=== PATIENT | male | born 1955 | race Two or more races ===

== ENCOUNTER 2017-02-06 12:42 | Inpatient (IN) | payer OTHER ==
[~2017-02-06] VITALS: Ht 180.3 cm; Wt 96.8 kg
--- NOTE | ~2017-02-06 | ECHO ---
Transthoracic Echocardiography Report (TTE) Demographics Patient Name ERROL JON Date of Study 02/07/2017 Patient Number [id number] Visit Number [id number] Date of 1955 Room Number G6223 Gender Male Number Age 61 year(s) Referring Beckie Mooney Certified Cytotechnologist Marco A Estrada RDCS, Physician RVT Liberty Wong MD Physician Interpreting Jacey Villarreal Java Tech Physician Supervising Ordering Liberty Wong MD, MD/MLP Physician Nurse Stress Construction Engineer Conclusions Contractility Score Summary Normal Left Ventricular contractility was noted. Summary Technically difficult exam due to lung interference. Normal LV/RV size and systolic function. The estimated left ventricular ejection fraction is 55-60%. The left atrium is moderately dilated by LA volume index measurement. The right atrium is mildly dilated. Moderate mitral regurgitation by color Doppler. The aortic valve is mildly sclerotic. Procedure Type of Study TTE procedure:2D Echocardiogram. Procedure Date Date: 02/07/2017 Start: 10:42 AM Study Location: Inpatient Portable Technical Quality: Limited visualization due to lung interference. Indications:CVA. Appropriate Use Criteria: 9 Patient Status: Routine Rhythm: Atrial fibrillation HR: 84 bpm BP: 192/91 mmHg Allergies - Other:(Prednisone). M-Mode/2D Measurements LV Diastolic Dimension: 5.17 cm LV Systolic Dimension: 3.85 cm LV Septum Diastolic: 0.81 cm LV PW Diastolic: 0.95 cm AO Root Dimension: 3.7 cm Cardiac Output: 4.59 l/min AV Cusp Separation: 2.2 cm RV Diastolic Dimension: 2.55 cm LA volume: 84 ml LVOT: 2 cm RV Base: 3.47 cm LVOT VTI: 17.4 cm RV Mid: 3.26 cm LV Stroke volume: 54.64 ml TAPSE: 3.78 cm TDI-S': 17.2 cm/s Doppler Measurements AV Peak Velocity: 1.48 m/s MV Peak E-Wave: 1.14 m/s AV Peak Gradient: 8.76 mmHg AV Mean Gradient: 5 mmHg MV P1/2t: 63 msec LVOT Peak Velocity: 0.84 m/s TR Velocity:1.45 m/s PV Peak Velocity: 0.98 m/s TR Gradient:8.41 mmHg PV Peak Gradient: 3.83 mmHg Estimated RAP:8 mmHg Estimated PASP: 16.41 mmHg Estimated RVSP: 16 mmHg E' Septal Velocity: 0.11 m/s E' Lateral Velocity: 0.13 m/s Findings Left Ventricle The left ventricle is normal in size . Diastolic function indeterminate due to patient's arrhythmia. Pt was in atrial fibrillation during the study. Right Ventricle Normal right ventricle structure and function. Left Atrium The left atrium is moderately dilated by LA volume index measurement. Right Atrium The right atrium is mildly dilated. No subcostal images, unable to comment on IVC. Mitral Valve Moderate mitral regurgitation by color Doppler. Aortic Valve The aortic valve is mildly sclerotic. Tricuspid Valve Trivial tricuspid regurgitation by color Doppler. Pulmonic Valve Normal pulmonic valve structure and function. Pericardial Effusion No evidence of pericardial effusion. Miscellaneous Visualized portions of the aortic root and ascending aorta appear normal in size. Suboptimal subcostal window to evaluate the IVC and interatrial septum. Pleural Effusion No evidence of pleural effusion. Contractility Score LV regional wall motion:(0-Non visualized 1-Normal 2-Hypokinesis 3-Akinesis 4-Dyskinesis 5-Aneurysm) Signature dtt: JORDEN CASTILLO dtd: 02/07/17 1042 Physician Self Edit
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
--- NOTE | ~2017-02-06 | DS ---
PATIENT'S NAME: ERROL JON [facility] AGE: 61 Y [address] ROOM: [place] [address] LOC[facility]: [facility] ADMIT DATE: 02/06/2017 Discharge Summary DISCHARGE DATE: 02/11/2017 FAMILY PHYSICIAN: Vinicio Butts MD ATTENDING PHYSICIAN: Eric Squires PRINCIPAL DIAGNOSES: 1. Acute right posterior cerebral artery stroke. 2. New onset atrial fibrillation. 3. Type 2 diabetes. 4. Essential hypertension. 5. Vision loss, left eye. 6. Paraplegic waist down. HOSPITAL COURSE: Please review the admission H and P for a detailed history on initial presentation. In short, the patient was admitted and was found to have an acute right posterior cerebral artery stroke and was outside tPA window at presentation. The patient is known to be paraplegic and his significant neurologic finding following the stroke is partial vision loss in the left eye. The patient overall has done well therapy alexander and he is to continue to get therapy and is now being transferred to [facility] in [place]. Of note, the patient was also noted to be in new onset atrial fibrillation, which is new for the patient during hospitalization and this perhaps explains the embolic nature of the stroke. The patient was seen and evaluated by Cardiology and Neurology during his hospital stay and had been started on sotalol and had stayed in sinus rhythm in the last 72 hours. As far as anticoagulation and noting the large size of the stroke, anticoagulation is to be started with Coumadin on 02/15/2017 with the goals of reaching therapeutic INR within 3 to 5 days following initiation date. The patient otherwise today is in good spirits and is being discharged in satisfactory condition. PHYSICAL EXAMINATION: GENERAL: The patient is awake, alert, and oriented x3, in no acute distress. HEART: S1, S2. Regular rate and rhythm. CHEST: Clear to auscultation bilaterally. ABDOMEN: Soft, nontender, and nondistended. NEUROLOGIC: Left hemianopsia. DISPOSITION: [facility]. I have spoken to Dr. Butts about the patient's status and followup. MEDICATIONS: Per DEC. PATIENT'S NAME: ERROL JON [facility] AGE: 61 Y [address] ROOM: [place] [address] LOCATION: [facility] ADMIT DATE: 02/06/2017 Discharge Summary DISCHARGE DATE: 02/11/2017 FAMILY PHYSICIAN: Vinicio Butts MD ATTENDING PHYSICIAN: Eric Squires Greater than 30 minutes were spent in discharge planning and facilitating. CECILYOT MD JENA MCKEON/ryanl /[id number] d: 02/12/17 0146 t: 03/01/17 1200, DISCHARGE SUMMARY
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
[2017-02-06 13:31] LABS: HEMATOCRIT 31.2 % (37.0-53.0); HEMOGLOBIN 10.8 g/dL (11.0-16.0); MCH 29.8 pg (27.0-34.0); MCHC 34.6 gm/dL (32.0-36.5); MCV 86.2 fl (83.0-98.0); MPV 10.1 fl (9.4-12.4); RDW-CV 13.9 % (11.9-14.6); WBC 11.5 K/uL (4.0-11.0)
[2017-02-06 13:32] LABS: RBC 3.62 M/uL (3.50-5.50)
[2017-02-06 13:45] LABS: INR - (THERAPEUTIC) 0.96 (0.92-1.07); PROTIME 10.1 SECONDS (9.8-11.4)
[2017-02-06 13:52] LABS: ALBUMIN 2.3 gm/dL (3.5-5.0); ALK PHOS 94 IU/L (33-138); ALT 18 IU/L (12-78); ANION GAP 8.4 (10.0-19.0); AST 18 IU/L (10-40); BLOOD UREA NITROGEN 37 mg/dL (6-24); CALCIUM 7.7 mg/dL (8.5-10.5); CHLORIDE 113 mMol/L (96-110); CO2 25 mMol/L (22-32); CREATININE 1.4 mg/dL (0.6-1.3); ESTIMATED GFR (MDRD EQUATION) 52; POTASSIUM 3.4 mMol/L (3.7-5.1); SODIUM 143 mMol/L (135-145); TOTAL BILIRUBIN 0.4 mg/dL (0.0-1.5); TOTAL PROTEIN 5.5 g/dL (6.0-8.4)
[2017-02-06] MEDS ORDERED: DULCOLAX5 MG PO (17:46)
[2017-02-06] MEDS ORDERED: LANTUS (IN100 UNIT/M SUB-Q (17:47)
[2017-02-06] MEDS ORDERED: MACROBID100 MG PO (17:47)
[2017-02-07 01:26] LABS: BILIRUBIN URINE NEGATIVE (NEGATIVE); BLOOD URINE 50 /UL (NEGATIVE); COLOR URINE YELLOW (YELLOW); GLUCOSE URINE 100 mg/dL (NEGATIVE); KETONE URINE NEGATIVE (NEGATIVE); LEUKOCYTES URINE NEGATIVE /UL (NEGATIVE); NITRITE URINE NEGATIVE (NEGATIVE); PROTEIN URINE 500 mg/dL (NEGATIVE); TURBIDITY URINE 1+ (CLEAR); UROBILINOGEN URINE NORMAL (NORMAL)
[2017-02-07 01:43] LABS: WBC URINE NEGATIVE #/HPF (NEGATIVE)
[2017-02-07 01:44] LABS: AMORPHOUS URINE 1+ (NEGATIVE); BACTERIA URINE MANY (NEGATIVE); EPITHELIAL URINE NEGATIVE #/HPF (NEGATIVE); HYALINE CAST URINE 0-2 #/LPF (NEGATIVE); RENAL EPITH URINE NEGATIVE #/HPF (NEGATIVE)
[2017-02-07 05:16] LABS: ANION GAP 10.7 (10.0-19.0); CALCIUM 7.6 mg/dL (8.5-10.5); CREATININE 1.4 mg/dL (0.6-1.3); POTASSIUM 3.7 mMol/L (3.7-5.1)
[2017-02-08 05:12] LABS: CALCIUM 7.5 mg/dL (8.5-10.5); CREATININE 1.3 mg/dL (0.6-1.3)
[2017-02-08 05:15] LABS: ANION GAP 12.4 (10.0-19.0); MAGNESIUM 1.7 mg/dL (1.8-2.6); POTASSIUM 3.4 mMol/L (3.7-5.1)
[2017-02-09 05:06] LABS: CREATININE 1.4 mg/dL (0.6-1.3); POTASSIUM 3.3 mMol/L (3.7-5.1)
[2017-02-09 05:09] LABS: ANION GAP 14.3 (10.0-19.0); CALCIUM 7.2 mg/dL (8.5-10.5)
[2017-02-10 04:14] LABS: ANION GAP 11.2 (10.0-19.0); CALCIUM 7.5 mg/dL (8.5-10.5); CREATININE 1.3 mg/dL (0.6-1.3); MAGNESIUM 1.8 mg/dL (1.8-2.6); POTASSIUM 3.2 mMol/L (3.7-5.1)
[2017-02-11 04:50] LABS: ANION GAP 9.2 (10.0-19.0); CALCIUM 7.6 mg/dL (8.5-10.5); CREATININE 1.5 mg/dL (0.6-1.3); POTASSIUM 3.2 mMol/L (3.7-5.1)
[2017-05-21] MEDS ORDERED: COUMADIN ** IA3 MG PO (13:35)
[2017-05-21] MEDS ORDERED: PRINIVIL (ZESTRI5 MG PO (13:37)
[2017-05-21] MEDS ORDERED: AMIODARONE HCL100 MG (13:37)
[2017-05-21] MEDS ORDERED: TOPROL XL 5050 MG PO (13:38)
== END 2017-02-11 12:09 | disposition swing bed (61) | DRG 65 ==
LOC: GMED 12:42 → GNTU 16:16
PROVIDERS: Internal Medicine; ADMIT Internal Medicine
DX: I63.431 Cerebral infarction due to embolism of right posterior cerebral artery (principal); N39.0 Urinary tract infection, site not specified; G82.20 Paraplegia, unspecified; G95.20 Unspecified cord compression; H53.462 Homonymous bilateral field defects, left side; I11.0 Hypertensive heart disease with heart failure; I50.32 Chronic diastolic (congestive) heart failure; E83.42 Hypomagnesemia; I48.0 Paroxysmal atrial fibrillation; R20.0 Anesthesia of skin; E11.9 Type 2 diabetes mellitus without complications; N31.2 Flaccid neuropathic bladder, not elsewhere classified; E87.6 Hypokalemia; S24.154D Other incomplete lesion at T11-T12 level of thoracic spinal cord, subsequent encounter; H54.7 Unspecified visual loss; V89.2XXD Person injured in unspecified motor-vehicle accident, traffic, subsequent encounter; I25.10 Atherosclerotic heart disease of native coronary artery without angina pectoris; Z79.4 Long term (current) use of insulin
CPT/HCPCS: A9577; J0696; J1170; J1650; J1940; J2405; J3010; J3475; J3480; J7030; J7050

== ENCOUNTER 2017-02-19 11:00 | Inpatient (IN) | payer OTHER ==
[~2017-02-19] VITALS: Ht 154.9 cm; Wt 85.0 kg
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
--- NOTE | ~2017-02-19 | OR ---
PATIENT'S NAME: ERROL BULLARD [facility] AGE: 61 Y [address] ROOM: [place] [address] LOCATION: GPCU ADMIT DATE: 02/19/2017 OR/Procedure Report DISCHARGE DATE: 03/05/2017 FAMILY PHYSICIAN: Vinicio Butts MD ATTENDING PHYSICIAN: Alireza Lenz SURGEON: Duran Rich DO PATHOLOGY SECRETARY: DATE OF PROCEDURE: 02/26/2017 PREOPERATIVE DIAGNOSIS: Tachybrady syndrome with sinus bradycardia. POSTOPERATIVE DIAGNOSIS: Tachybrady syndrome with sinus bradycardia. PROCEDURE: Insertion of dual-chamber with permanent pacemaker via the left subclavian vein. BRIEF HISTORY: Mr. Bullard is a 61-year-old white male, who has been brought to the operative suite today for placement of his device. The anterior chest wall was sterilely prepped and draped. The left infraclavicular space was infiltrated with 1% lidocaine after appropriate IV sedation was achieved and the patient was placed into a Trendelenburg position. The subclavian vein was accessed and a guidewire was fed without resistance under fluoroscopic guidance into the right atrium. An incision was created and pocket was formed. Electrocautery was used for hemostasis. Guidewires were brought through the incision via sheath and dilator assembly, we placed our leads. We began with our right ventricular lead. It is a [employer] Ingevity lead, model 7742, serial #[id number]. It is placed in the right ventricular apex sensing R-waves of 13.4 with a measured threshold of 0.6 V and pacing impedance of 788 ohms and a current of 0.8 milliamps. The atrial leads were then placed in a similar fashion. It is a [employer] Ingevity lead, model 7741, serial #[id number], it is placed in the right atrial appendage sensing P-waves of 3.6 mV with a voltage threshold of 0.5 V and a pacing impedance of 594 ohms. Each lead now connected to the generator, which is a [employer]ent[employer], model L111, serial #[id number]. Leads and generator were now placed in the pocket. Appropriate sensing pacing was noted. The incision was closed in a layered fashion with 2-0 Vicryl and 4-0 Monocryl and a pressure dressing was applied. The patient tolerated the procedure well and was transferred to the recovery room in stable condition. DURAN RICH DO MCB/sarabjit PATIENT'S NAME: ERROL BULLARD [facility] AGE: 61 Y [address] ROOM: [place] [address] LOCATION: [facility] ADMIT DATE: 02/19/2017 OR/Procedure Report DISCHARGE DATE: 03/05/2017 FAMILY PHYSICIAN: Vinicio Butts MD ATTENDING PHYSICIAN: Alireza Lenz /[id number] d: 03/11/172054 t: 03/12/17 0841, OPERATIVE SUMMARY
--- NOTE | ~2017-02-19 | OR ---
PATIENT'S NAME: ERROL BULLARD [facility] AGE: 61 Y [address] ROOM: [address] [address] LOCATION: [facility] ADMIT DATE: 02/19/2017 OR/Procedure Report DISCHARGE DATE: FAMILY PHYSICIAN: Vinicio Butts MD ATTENDING PHYSICIAN: Yoanna CHATTERJEE SURGEON: Duran Ellis DO OBSTETRICS GYN PHYSICIAN: DATE OF PROCEDURE: 02/22/2017 PREOPERATIVE DIAGNOSIS: Bilateral pleural effusions. POSTOPERATIVE DIAGNOSIS: Bilateral pleural effusions. PROCEDURE: Insertion of bilateral 14-Sami chest tubes. REFERRING: David Branch MD. BRIEF HISTORY: Mr. Bullard is a 61-year-old white male with the above-noted diagnosis. Informed consent has been obtained. We began on the right, the area had been identified laterally with the ultrasound, 1% lidocaine was used to infiltrate the area after appropriate sterilizing and prepping area, 1% lidocaine infiltrated a skin well on the deeper tissues. Stab incision was made and the pleural space was accessed, guidewire fed without resistance, and the chest tube was placed without difficulty. An an aliquot of fluid was obtained for specimen and then the chest tube was connected to suction. Approximately 1200 mL of pleural fluid was evacuated from the right pleural space. The left pleural space tube was placed in exactly the same fashion, approximately 1 L fluid was obtained on this side. Chest x-ray is pending. DO NEETU MASSEY/ryanl /[id number] d: 02/22/17 1421 t: 02/23/17 1057, OPERATIVE SUMMARY
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
[~2017-02-19 11:00] MED LIST: DULCOLAX5 MG PO; LANTUS (IN100 UNIT/M SUB-Q; MACROBID100 MG PO
[2017-02-19] MEDS ORDERED: ASPIRIN (CHILDR81 MG PO (14:57)
[2017-02-19] MEDS ORDERED: BETAPACE (GENER80 MG PO (14:58)
[2017-02-19] MEDS ORDERED: ALDACTONE25 MG PO (14:58)
[2017-02-19] MEDS ORDERED: TYLENOL EXTRA500 MG PO (14:59)
[2017-02-19] MEDS ORDERED: NORVASC5 MG PO (15:00)
[2017-02-19 15:01] LABS: BASOPHIL # 0.1 K/uL (0.0-0.2); BASOPHIL % 0.6 %; EOSINOPHIL # 0.5 K/uL (0.0-0.5); EOSINOPHIL % 4.9 %; HEMATOCRIT 32.1 % (37.0-53.0); HEMOGLOBIN 10.8 g/dL (11.0-16.0); IMMATURE GRANULOCYTE % 0.2 %; LYMPHOCYTE # 3.5 K/uL (0.8-4.0); MCH 29.6 pg (27.0-34.0); MCHC 33.6 gm/dL (32.0-36.5); MCV 87.9 fl (83.0-98.0); MONOCYTE # 0.8 K/uL (0.0-1.0); MONOCYTE % 7.6 %; MPV 9.3 fl (9.4-12.4); NEUTROPHIL # (ANC) 5.9 K/uL (1.4-9.0); NEUTROPHIL % 54.7 %; NRBC % 0 /100WBC (0-0.00); PLATELET COUNT 236 K/uL (150-450); RBC 3.65 M/uL (3.50-5.50); RDW-CV 13.7 % (11.9-14.6); WBC 10.8 K/uL (4.0-11.0)
[2017-02-19] MEDS ORDERED: POTASSIUM CHLO20 ME1 PO (15:03)
[2017-02-19] MEDS ORDERED: COUMADIN ** IA5 MG PO (15:04)
[2017-02-19] MEDS ORDERED: LIPITOR80 MG PO (15:06)
[2017-02-19 15:19] LABS: ALBUMIN 2.1 gm/dL (3.5-5.0); ANION GAP 12.2 (10.0-19.0); CALCIUM 7.7 mg/dL (8.5-10.5); CREATININE 2.4 mg/dL (0.6-1.3); POTASSIUM 4.2 mMol/L (3.7-5.1); TOTAL BILIRUBIN 0.4 mg/dL (0.0-1.5); TOTAL PROTEIN 5.8 g/dL (6.0-8.4)
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
[2017-02-19 17:17] LABS: INR - (THERAPEUTIC) 2.39 (0.92-1.07); PROTIME 25.3 SECONDS (9.8-11.4)
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
[2017-02-19 18:28] LABS: BILIRUBIN URINE NEGATIVE (NEGATIVE); BLOOD URINE 50 /UL (NEGATIVE); COLOR URINE YELLOW (YELLOW); GLUCOSE URINE NEGATIVE (NEGATIVE); KETONE URINE NEGATIVE (NEGATIVE); LEUKOCYTES URINE NEGATIVE /UL (NEGATIVE); NITRITE URINE NEGATIVE (NEGATIVE); PROTEIN URINE 500 mg/dL (NEGATIVE); SPEC GRAVITY URINE 1.015 (1.003-1.035); TURBIDITY URINE 1+ (CLEAR); UROBILINOGEN URINE NORMAL (NORMAL)
[2017-02-19 19:01] LABS: BACTERIA URINE MODERATE (NEGATIVE)
[2017-02-19 19:04] LABS: MUCUS URINE 1+ (NEGATIVE)
[2017-02-19 19:05] LABS: AMORPHOUS URINE 3+ (NEGATIVE)
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
[2017-02-20 06:05] LABS: INR - (THERAPEUTIC) 2.86 (0.92-1.07); PROTIME 30.3 SECONDS (9.8-11.4)
[2017-02-20 06:22] LABS: ALBUMIN 2.2 gm/dL (3.5-5.0); ANION GAP 12.7 (10.0-19.0); CALCIUM 7.9 mg/dL (8.5-10.5); CREATININE 2.5 mg/dL (0.6-1.3); PHOSPHORUS 4.6 mg/dL (2.5-4.9); POTASSIUM 3.7 mMol/L (3.7-5.1)
[2017-02-20 14:06] LABS: BILIRUBIN URINE NEGATIVE (NEGATIVE); BLOOD URINE 50 /UL (NEGATIVE); COLOR URINE YELLOW (YELLOW); GLUCOSE URINE NEGATIVE (NEGATIVE); KETONE URINE NEGATIVE (NEGATIVE); LEUKOCYTES URINE NEGATIVE /UL (NEGATIVE); NITRITE URINE NEGATIVE (NEGATIVE); PROTEIN URINE 100 mg/dL (NEGATIVE); SPEC GRAVITY URINE 1.015 (1.003-1.035); TURBIDITY URINE 1+ (CLEAR); UROBILINOGEN URINE NORMAL (NORMAL)
[2017-02-20 14:23] LABS: BACTERIA URINE MODERATE (NEGATIVE); EPITHELIAL URINE 0-2 #/HPF (NEGATIVE); MUCUS URINE 1+ (NEGATIVE); RENAL EPITH URINE 0-2 #/HPF (NEGATIVE)
[2017-02-20 14:24] LABS: WBC CAST URINE 0-2 #/LPF (NEGATIVE)
[2017-02-20 14:25] LABS: WBC CLUMPS URINE FEW (NEGATIVE)
--- NOTE | 2017-02-20 15:20 | NUR ---
Significant Event: Pt denies pain. Always cold and wrapped in blankets at all times. Up in his w/c with 2 assist, pt able to slideboard transfer. Zhang catheter draining yellow urine. UA sent, started on 24 hour UA at 1345. Cardiac enzymes done x1. Renal conulted. Ultrasound of chest done, possibility of thoracenthesis by Dr. Ellis. Hold Coumadin. O2 sat 99% on 2 liters, Dc'd O2 and will monitor. Bp at 1400 was 196/90, pulse 50, MD notified, prn Hydralizine ordered but approx. 20 min later bp was 149/74 pulse 49 so did not give. On a fluid restriction. Pt is a paraplegic. Tele on, no calls, is bradycardiac throughout shift. Follow up:
--- NOTE | 2017-02-21 02:08 | NUR ---
Significant Event: Patient alert and orientated, refuses any pain medication though it is obvious he does have pain. Zhang to DD. Repositioned self during waking hours, but asks for help throughout the night. 2-3+ edema to bilateral legs. 24 hour urine complete at 1345 today. Vitals have been stable. Restarted 02 at 2 liters because his sats dropped to 81 during the night. Lungs clear. Follow up: Continue to monitor.
[2017-02-21 05:41] LABS: BASOPHIL # 0.1 K/uL (0.0-0.2); BASOPHIL % 0.5 %; EOSINOPHIL # 0.4 K/uL (0.0-0.5); EOSINOPHIL % 3.2 %; HEMATOCRIT 31.5 % (37.0-53.0); HEMOGLOBIN 10.8 g/dL (11.0-16.0); IMMATURE GRANULOCYTE % 0.3 %; LYMPHOCYTE % 25.1 %; MCH 29.8 pg (27.0-34.0); MCHC 34.3 gm/dL (32.0-36.5); MCV 86.8 fl (83.0-98.0); MONOCYTE # 0.8 K/uL (0.0-1.0); MONOCYTE % 6.7 %; NEUTROPHIL # (ANC) 7.7 K/uL (1.4-9.0); NEUTROPHIL % 64.2 %; NRBC % 0 /100WBC (0-0.00); PLATELET COUNT 232 K/uL (150-450); RBC 3.63 M/uL (3.50-5.50); RDW-CV 13.2 % (11.9-14.6)
[2017-02-21 05:50] LABS: INR - (THERAPEUTIC) 2.67 (0.92-1.07); PROTIME 28.3 SECONDS (9.8-11.4)
[2017-02-21 05:58] LABS: ALBUMIN 2.2 gm/dL (3.5-5.0); ANION GAP 11.8 (10.0-19.0); CREATININE 2.6 mg/dL (0.6-1.3); PHOSPHORUS 4.2 mg/dL (2.5-4.9); POTASSIUM 3.8 mMol/L (3.7-5.1)
--- NOTE | 2017-02-21 15:09 | NUR ---
Significant Event: Pt c/o generalized chronic pain but refuses pain meds. Up with slideboard and 2 assist. Zhang draining yellow urine. 24hr UA stopped at 1345 and sent to lab. Continues on fluid restriction. Has been on room air today. Vit K IV given x1 to help bring INR down for possible future procedure. Will recheck in am. PT/OT consult. Family at bedside. Follow up:
[2017-02-21 18:07] LABS: INR - (THERAPEUTIC) 1.51 (0.92-1.07); PROTIME 15.9 SECONDS (9.8-11.4)
[2017-02-22 04:20] LABS: BASOPHIL # 0.1 K/uL (0.0-0.2); BASOPHIL % 0.5 %; EOSINOPHIL # 0.4 K/uL (0.0-0.5); EOSINOPHIL % 3.3 %; HEMATOCRIT 30.3 % (37.0-53.0); HEMOGLOBIN 10.5 g/dL (11.0-16.0); IMMATURE GRANULOCYTE % 0.3 %; LYMPHOCYTE # 3.8 K/uL (0.8-4.0); LYMPHOCYTE % 30.6 %; MCHC 34.7 gm/dL (32.0-36.5); MCV 86.6 fl (83.0-98.0); MONOCYTE # 0.8 K/uL (0.0-1.0); MONOCYTE % 6.2 %; MPV 9.9 fl (9.4-12.4); NEUTROPHIL # (ANC) 7.2 K/uL (1.4-9.0); NEUTROPHIL % 59.1 %; NRBC % 0 /100WBC (0-0.00); PLATELET COUNT 228 K/uL (150-450); RDW-CV 13.2 % (11.9-14.6); WBC 12.3 K/uL (4.0-11.0)
--- NOTE | 2017-02-22 04:38 | NUR ---
Significant Event: Patient started on heparin therapy last night and will have bilateral chest tube placement today at 0900. Consents not signed, no risks benefits discussed. Stop heparin at 0800. Had a incontinent stool. Hypertensive. Tele with no calls. Zhang to DD, bilateral groin are reddened and small open area noted on scrotum. Repositions self at times, but needs to be awoken to be repositioned at nighttime. Mormon could also do renal bx.
[2017-02-22 04:42] LABS: ALBUMIN 2.2 gm/dL (3.5-5.0); ANION GAP 11.5 (10.0-19.0); CALCIUM 7.8 mg/dL (8.5-10.5); CREATININE 2.7 mg/dL (0.6-1.3); MAGNESIUM 1.9 mg/dL (1.8-2.6); PHOSPHORUS 3.7 mg/dL (2.5-4.9); POTASSIUM 3.5 mMol/L (3.7-5.1)
[2017-02-22 04:47] LABS: PROTIME 12.2 SECONDS (9.8-11.4)
[2017-02-22 04:53] LABS: INR - (THERAPEUTIC) 1.16 (0.92-1.07)
--- NOTE | 2017-02-22 16:00 | NUR ---
SPOKE TO PATIENT'S SPOUSE AT THE BEDSIDE. INTRODUCED CM AND OUR ROLE. PATIENT LIVES IN OWN HOME WITH SPOUSE AND IS PLANNING ON RETURNING THERE ONCE HE IS READY FOR DISCHARGE. HIS SPOUSE TELLS ME " IT IS TOO EARLY TO KNOW WHAT HE WILL NEED UPON DISCHARGE. " WILL CONT TO FOLLOW NEEDED.
--- NOTE | 2017-02-22 17:02 | NUR ---
Significant Event: Patient is alert and oriented x3, more tired and drowsy today. CT of the head to be completed soon to R/O bleeding. Bilateral chest tubes placed this morning by Dr. Ellis. Good output- Right chest tube had 1250 and the Left chest tube had 1110. Yellow in color. Paraplegic. Refuses to turn sometimes. FR of 1500ml. Heparin is on hold until the CT scan is complete. PT and OT working with the patient. Accuchecks AC/HS. Tele on, one call- patient was in A-fibb for about 12 minutes- rates in the 60's. notified. No new orders. Zhang in place. One BM- incontient- not loose. Mushy. Bilateral groins redenned. Small open are on his scrotum. Appetite is fair. Family at the bedside. Cooperative with cares.
--- NOTE | 2017-02-23 04:27 | NUR ---
Significant Event: Patient is alert and oriented x 3. VSS on room air. Paraplegic. Up with full lift. Reposition q2 hours, refused at times. On telemetry, no calls. Bilateral chest tubes in place. 90 mls out of left and 70 mls out of right. Zhang intact. 1850 mls out this shift. Minimal pain, refused need for pain medication. Heparin gtt restarted at beginning of shift per MD order. Left wrist IV with the Heparin gtt running at 1100 units/hr. Next PTTHP at 0645. ACHS accuchecks. On 1500 ml fluid restriction. Patient is cooperative with cares. Follow up:
--- NOTE | 2017-02-23 07:18 | NUR ---
Late entry from
[2017-02-23 07:19] LABS: BASOPHIL # 0.1 K/uL (0.0-0.2); BASOPHIL % 0.6 %; EOSINOPHIL # 0.5 K/uL (0.0-0.5); EOSINOPHIL % 3.7 %; HEMATOCRIT 33.5 % (37.0-53.0); HEMOGLOBIN 11.5 g/dL (11.0-16.0); IMMATURE GRANULOCYTE % 0.2 %; LYMPHOCYTE # 2.9 K/uL (0.8-4.0); LYMPHOCYTE % 24.4 %; MCH 29.7 pg (27.0-34.0); MCHC 34.3 gm/dL (32.0-36.5); MCV 86.6 fl (83.0-98.0); MONOCYTE # 0.7 K/uL (0.0-1.0); MONOCYTE % 5.7 %; MPV 10.1 fl (9.4-12.4); NEUTROPHIL # (ANC) 7.9 K/uL (1.4-9.0); NEUTROPHIL % 65.4 %; NRBC % 0 /100WBC (0-0.00); PLATELET COUNT 232 K/uL (150-450); RBC 3.87 M/uL (3.50-5.50); RDW-CV 13.2 % (11.9-14.6)
--- NOTE | 2017-02-23 07:19 | NUR ---
Late entry: on 02/19/17 Zhang was placed with no complications for urinary retention.
[2017-02-23 07:33] LABS: ALBUMIN 2.3 gm/dL (3.5-5.0); ANION GAP 10.7 (10.0-19.0); CALCIUM 8.2 mg/dL (8.5-10.5); CREATININE 2.4 mg/dL (0.6-1.3); POTASSIUM 3.7 mMol/L (3.7-5.1); TOTAL PROTEIN 6.1 g/dL (6.0-8.4)
[2017-02-23 07:38] LABS: INR - (THERAPEUTIC) 1.04 (0.92-1.07); PROTIME 10.9 SECONDS (9.8-11.4)
[2017-02-23 07:39] LABS: TOTAL BILIRUBIN 0.5 mg/dL (0.0-1.5)
[2017-02-23 13:55] LABS: CPK 124 IU/L (35-332)
--- NOTE | 2017-02-23 15:25 | NUR ---
Patient is alert and oriented, on room air. He is paraplegic so a total lift. ADA diet, with 1500ml fluid restriction, low sodium. ACHS accuchecks, no coverage needed. Bilateral chest tubes for plerual effusion. Has L) sided weakness and vision problems due to recent stroke (Easter '17). Groin has a pea sized open area and buttocks are red. Zhang was replaced today and started on a 24 hour urine collection. Can be incontinent of stool but none today. L) FA IV has heparin infusing at 1100 units/hr for his AFIB, next PTTHP is at 1845. Coumadin is on hold for possible kidney biopsy. Tele on with multiple calls for going into [facility], then have multiple pauses and returning to [facility]. Patient was transferred to PCU room 6313, prior to transfer he had a chest Xray done and an EKG that showed him being bradycardic at 49 beats per minute. Labs were drawn upon arrival to PCU. Report was given to JULIANA Quintanilla.
[2017-02-23 17:54] LABS: TIME 24 h (()); VOLUME 3500 mL (())
--- NOTE | 2017-02-23 19:31 | NUR ---
CARDIOLOGY UPDATED OF HR AND RHYTHM. HR SINUS VICK AT THAT TIME W/ RATE OF 50, DECREASED FOR SECONDS TO 30'S THEN BACK UP TO 50. HEPARIN GTT CONTINUED PER PROTOCOL. CONTINUE TO HOLD SOTOLOL.
--- NOTE | 2017-02-24 04:34 | NUR ---
Significant Event: Patient alert and oriented x3. SBP 140s-170s. HR 40s-80s. All other vital signs stable. On RA. Patient complained frequently of pain to back and chest tubes but refused any pain medication. Bilateral chest tube dressings clean/dry/intact. Right with 30ml output. Left with 10ml output. 24 hour urine collection continues. 350ml uop this shift. To be D/C'd at 1200. Heparin continues at 1100units/hr to left wrist PIV. Next PTTHP at 1400. Patient up to bathroom with 3 assist, lift, and home bath chair. Patient tolerated well. BMx2. 1500ml fluid restriction continues. Patient calm and cooperative with all cares. Follow up: Will continue to monitor per plan of care.
[2017-02-24 04:37] LABS: INR - (THERAPEUTIC) 1.04 (0.92-1.07); PROTIME 10.9 SECONDS (9.8-11.4)
[2017-02-24 04:41] LABS: ALBUMIN 2.2 gm/dL (3.5-5.0); ANION GAP 9.5 (10.0-19.0); CALCIUM 8.1 mg/dL (8.5-10.5); CREATININE 2.6 mg/dL (0.6-1.3); PHOSPHORUS 4.1 mg/dL (2.5-4.9); POTASSIUM 3.5 mMol/L (3.7-5.1)
--- NOTE | 2017-02-24 12:55 | NUR ---
Introduced self and CM role to Uma' and daughter out in the hallway by his room. I am familiar with them from previous admission here at [facility]. tells me that he was at [facility] and progressively went downhill so they sent him here for higher level of care. It is her goal to get him to go straight home from here, but isn't for sure at this point if that is going to be a possibility. Daughter did leave [facility] paperwork on the chart for MD to fill out. Kelsey Cota with the hospitalists is aware of this and is getting it taken care of. I let daughter know this. was wondering about different ways to get him home from here instead of an ambulance as that is really high in betts. I let her know that I would look into some options, such as [employer], personal auto with help of nursing and therapies or whatever else I would be able to come up with. I know that I would keep them updated and when it got closer to the time we would come up with a more concrete plan. and daughter were fine with this. No other questions, needs or concerns. CM to continue to follow and assist.
--- NOTE | 2017-02-24 13:15 | NUR ---
A - PT SCREENED D/T LOS. PEA SIZED OPEN AREA GROIN. 2+ EDEMA. HT: 61" WT: 231# (02/20), 209# (02/19 ADMIT WT). BMI: 39.6 LABS: ACCUCHECK WNL-REAS, K+ 3.5, BUN/CR 27/2.6, ALB 2.2, WBC 12.0. MEDS: SSI, BUMEX, KCL, LEVEMIR, PROTONIX, BOWEL DIET: DIABETIC, 2-3 GM SODIUM, 1500 ML FLUID. INTAKE; REF-100%, AVG ~60% NEEDS (BASED ON ADMIT WT): [id number] KCAL (15-20 KCAL/KG), 76-95 G PRO (0.8-1 G/KG), 1500 ML FLUID (PER MD) D - INADEQUATE NUTRIENT INTAKE AT TIMES R/T DECREASED APPETITE AEB INTAKE RECORD. I - GOAL FOR INTAKE 50-100% FOR DURATION OF STAY. WILL ADD GLUCERNA @ B TO INC NUTRIENT INTAKE. M/E - WILL MONITOR INTAKE. F/U IN 2-5 DAYS.
[2017-02-24 15:08] LABS: PROTEIN [CALC] 6265 mg/24h (())
[2017-02-24 16:10] LABS: ALBUMIN 2.4 g/dL (3.3-4.8); ALBUMIN 47.5 % (45.0-80.0); ALPHA 1 0.3 g/dL (0.1-0.4); ALPHA 2 0.8 g/dL (0.5-1.1); GAMMA 0.8 g/dL (0.6-1.5); PROTEIN, TOTAL 5.1 g/dL (6.1-7.8)
[2017-02-24 16:29] LABS: TIME 24 h (()); VOLUME 950 mL (())
--- NOTE | 2017-02-24 16:56 | NUR ---
Significant Event: pt left ct bled alittle and dressing changed this am. Water sealed cts this am, xray done at [address] Ellis pulled cts at 1620. Pt may poss. get pacemaker. HR 40s to 80s. HR afib in /out rates controlled, Gene notified. Next ptthp at 0300, heparin still infusing at 1100units. 24hr urine done. Pt has many family here. Tylenol this afternoon pain. Follow up:
--- NOTE | 2017-02-25 02:46 | NUR ---
Significant Event:Pt alert and oriented x3. pleasant with staff and cares.vss during shift.iv heparin to left wrist continues at 1100units/hr. pt denies pain when asked. bilateral chest dressings clean/dry/intact. aspirin to be held 5/4. castillo patent with yellow urine. lung sounds clear/diminished. bowel sounds active x4 quadrants. slight edema noted to lower bilateral legs. pt appetite improving did eat 100% of dinner. hs blood sugar 128 no coverage needed. family at bedside most of night. uses call light approp. Follow up:
[2017-02-25 03:44] LABS: ALBUMIN 2.3 gm/dL (3.5-5.0); ANION GAP 12.6 (10.0-19.0); CALCIUM 8.2 mg/dL (8.5-10.5); CREATININE 2.9 mg/dL (0.6-1.3); PHOSPHORUS 4.6 mg/dL (2.5-4.9); POTASSIUM 3.6 mMol/L (3.7-5.1)
[2017-02-25 03:47] LABS: PROTIME 10.5 SECONDS (9.8-11.4)
[2017-02-25 14:19] LABS: CH50 COMPLEMENT 162 (60-185)
--- NOTE | 2017-02-25 14:58 | NUR ---
Significant Event: A/O. VSS on RA. C/O "low spine" pain and r) eye pain which improved with tylenol. SBP 109-152 - BP of 109 & 112 was when patient was sitting up in chair. Denied any dizzyness or lightheadedness. Zhang to DD with 475 ml. Accuchecks ac/hs. Shower today with OT. Follow up:
[2017-02-26 04:41] LABS: ALBUMIN 2.3 gm/dL (3.5-5.0); ANION GAP 10.8 (10.0-19.0); CALCIUM 7.9 mg/dL (8.5-10.5); CREATININE 2.8 mg/dL (0.6-1.3); PHOSPHORUS 4.7 mg/dL (2.5-4.9); POTASSIUM 3.8 mMol/L (3.7-5.1)
--- NOTE | 2017-02-26 05:46 | NUR ---
Significant Event: A/0X3. RESTED IN BED ALL OF SHIFT. TURNED Q 2 HRS SIDE TO SIDE. AFEBRILE. VSS ON RA IV TO L) FA SL. DENIES PAIN. BEEN NPO SINCE MIDNIGHT FOR A PACE MAKER. PERMITS SIGNED AND ON THE CHART. THEN AFTERWARDS CT GUIDED KIDNEY BIOPSY. PERMITS NEED SIGNED. NO BM THIS SHIFT. FIGUEROA PRESENT WITH 700 MLS OUT. Follow up: CONTINUE WITH PLAN OF CARE.
[2017-02-26 15:13] LABS: PROTEIN [CALC] 3173 mg/24h (())
[2017-02-26 18:04] LABS: BASOPHIL # 0.1 K/uL (0.0-0.2); BASOPHIL % 0.8 %; EOSINOPHIL # 0.3 K/uL (0.0-0.5); EOSINOPHIL % 3.3 %; HEMATOCRIT 30.2 % (37.0-53.0); HEMOGLOBIN 10.2 g/dL (11.0-16.0); IMMATURE GRANULOCYTE % 0.3 %; LYMPHOCYTE % 18.9 %; MCHC 33.8 gm/dL (32.0-36.5); MCV 88.8 fl (83.0-98.0); MONOCYTE # 0.7 K/uL (0.0-1.0); MONOCYTE % 6.7 %; MPV 9.8 fl (9.4-12.4); NEUTROPHIL # (ANC) 7.3 K/uL (1.4-9.0); NRBC % 0 /100WBC (0-0.00); PLATELET COUNT 223 K/uL (150-450); RDW-CV 13.3 % (11.9-14.6); WBC 10.5 K/uL (4.0-11.0)
--- NOTE | 2017-02-26 18:33 | NUR ---
Significant Event:Patient had pacemaker put in and had kidney biopsy. Dressing to left chest, is dry and intact. Had tegaderm to right lower back, is dry and intact. Rhythm is paced at times. Had Tylenol for pain in left shoulder once. Does have some back pain with movement, he says this chronic. Has sling to arm. Bedrest for 6 hours, this is over at 1920. Follow up:No lifting >5 lbs. Holding heparin
[2017-02-27 03:56] LABS: BASOPHIL # 0.1 K/uL (0.0-0.2); BASOPHIL % 0.7 %; EOSINOPHIL # 0.4 K/uL (0.0-0.5); EOSINOPHIL % 4.5 %; HEMATOCRIT 30.3 % (37.0-53.0); HEMOGLOBIN 10.2 g/dL (11.0-16.0); IMMATURE GRANULOCYTE % 0.3 %; LYMPHOCYTE # 2.3 K/uL (0.8-4.0); LYMPHOCYTE % 26.4 %; MCH 29.7 pg (27.0-34.0); MCHC 33.7 gm/dL (32.0-36.5); MCV 88.3 fl (83.0-98.0); MONOCYTE # 0.7 K/uL (0.0-1.0); MONOCYTE % 8.1 %; MPV 9.9 fl (9.4-12.4); NEUTROPHIL # (ANC) 5.3 K/uL (1.4-9.0); NRBC % 0 /100WBC (0-0.00); PLATELET COUNT 251 K/uL (150-450); RBC 3.43 M/uL (3.50-5.50); RDW-CV 13.6 % (11.9-14.6); WBC 8.8 K/uL (4.0-11.0)
[2017-02-27 04:08] LABS: ALBUMIN 2.2 gm/dL (3.5-5.0); ANION GAP 10.9 (10.0-19.0); CALCIUM 8.1 mg/dL (8.5-10.5); CREATININE 2.6 mg/dL (0.6-1.3); PHOSPHORUS 4.1 mg/dL (2.5-4.9); POTASSIUM 3.9 mMol/L (3.7-5.1)
--- NOTE | 2017-02-27 05:39 | NUR ---
Significant Event: A/0X3. RESTED IN BED ALL OF SHIFT. TURNED Q 2 HRS SIDE TO SIDE. AFEBRILE. VSS ON RA. SBP 130-160. TYLENOL GIVEN X1 FOR SOME SORENESS TO THE PACER SITE. PATIENT WAS ABLE TO FIND RELIEF AND NO C/O OF PAIN THE REST OF THE SHIFT. IV TO L) FA SL. DRESSING TO L) SUBCLAVIAN C/D/I.L) ARM IN SLING. FIGUEROA PRESENT WITH 800 MLS OUT. NO BM THIS SHIFT. XRAY THIS AM. Follow up: CONTINUE WITH PLAN OF CARE.
--- NOTE | 2017-02-27 17:36 | NUR ---
PATIENT UP TO W/C, WENT DOWN TO MAIN FLOOR W/ FAMILY. SATS HIGH 90'S ON RA. AFEBRILE. GAVE INITIAL DOSE OF ASPIRIN FOR NEW ORDER TODAY. TYLENOL GIVEN X1 FOR PACER SITE PAIN.
[2017-02-28 03:50] LABS: INR - (THERAPEUTIC) 1.01 (0.92-1.07); PROTIME 10.6 SECONDS (9.8-11.4)
--- NOTE | 2017-02-28 05:21 | NUR ---
Continues in Paced rhythm at 70. SBPs 140-160s. No BM this shift. Good UOP this shift. Follow up: Continue
--- NOTE | 2017-02-28 19:14 | NUR ---
PATIENT RESTING IN BED, REPOSITION Q 2 HRS. GAVE 2 MG COUMADIN TODAY AND INCREASED NORVASC. FIGUEROA CATHETER HAD LOW UOP TODAY, BLADDER SCAN SHOWED 700 IN BLADDER. REPOSITIONED AND WHEN PATIENT UP TO SHOWER, FIGUEROA DRAINED ADDIIONAL 200 ML MORE. DRAINING CLEAR LIGHT YELLOW URINE. WILL CONTINUE TO MONTIOR. FAMILY AT BEDSIDE.
[2017-03-01 04:15] LABS: INR - (THERAPEUTIC) 1.01 (0.92-1.07); PROTIME 10.6 SECONDS (9.8-11.4)
[2017-03-01 04:20] LABS: ALBUMIN 2.3 gm/dL (3.5-5.0); ANION GAP 13.1 (10.0-19.0); CALCIUM 8.2 mg/dL (8.5-10.5); CREATININE 2.1 mg/dL (0.6-1.3); PHOSPHORUS 3.6 mg/dL (2.5-4.9); POTASSIUM 4.1 mMol/L (3.7-5.1)
--- NOTE | 2017-03-01 05:02 | NUR ---
Significant Event:A/Ox3. Hypertensive 140-170s. Afebrile. Paced rhythm. L)arm to sling for 2 weeks. No using arms to push off to transfer. CM/ to develop a plan for discharge. Zhang to DD. Irrigated cath x1 after bladder scan showed 999ml, got 700ml post irrigation. Repositioned q2h. Follow up:Continue with POC.
[2017-03-01 11:54] LABS: BASOPHIL # 0.1 K/uL (0.0-0.2); BASOPHIL % 0.6 %; EOSINOPHIL # 0.4 K/uL (0.0-0.5); EOSINOPHIL % 3.9 %; HEMATOCRIT 30.6 % (37.0-53.0); HEMOGLOBIN 10.3 g/dL (11.0-16.0); IMMATURE GRANULOCYTE # 0.1 K/uL (0.0-0.3); IMMATURE GRANULOCYTE % 0.5 %; LYMPHOCYTE # 2.7 K/uL (0.8-4.0); LYMPHOCYTE % 28.1 %; MCH 29.9 pg (27.0-34.0); MCHC 33.7 gm/dL (32.0-36.5); MONOCYTE # 0.7 K/uL (0.0-1.0); MONOCYTE % 7.3 %; MPV 9.4 fl (9.4-12.4); NEUTROPHIL # (ANC) 5.8 K/uL (1.4-9.0); NEUTROPHIL % 59.6 %; NRBC % 0 /100WBC (0-0.00); PLATELET COUNT 241 K/uL (150-450); RBC 3.44 M/uL (3.50-5.50); RDW-CV 13.4 % (11.9-14.6); WBC 9.8 K/uL (4.0-11.0)
--- NOTE | 2017-03-01 12:05 | NUR ---
Social visit with Ganga's in the hallway this morning. She tells me that she thinks that Ganga will need some therapies before she is going to be able to take him home and have C follow. She would like for doctors to look into seeing if he was a GIRP canidate. I let her know that we could ask MD to see if he would be in agreement with this option. was fine with this. She also wondered about other IPR units that might be available to him. I let her know that if ours couldn't take, we could look into Eile[facility] Blackburn and also IRP units. She was open to this, but states that she really likes our therapiests here and would like to stay here if possible. I let her know that we would see if we could get a rehab consult and then move forward from there. is open to going back to [facility] if they have to, but would like to explore IRP units before going that route. She was going to call and talk with their insurance to make sure that Ganga had IRP benefits and then update me to this new. CM to continue to follow and assist.
--- NOTE | 2017-03-01 13:08 | NUR ---
A - NUT F/U. DECREASED APPETITE AT TIMES. 1-2+ EDEMA. LABS: ACCUCHECK WNL-REAS, BUN/CR 30/2.1, ALB 2.3. MEDS: SSI, KCL, LEVEMIR, PROTONIX, BOWEL. DIET: DIABETIC, 2-3 GM NA, 1500 ML FLUID. INTAKE: REF-100%, MOSTLY 50-100% GLUCERNA @ B NEEDS: [id number] KCAL, 76-95 G PRO D - INADEQUATE NUTRIENT INTAKE AT TIMES R/T DECREASED APPETITE AEB INTAKE RECORD. I - GOAL FOR INTAKE TO MEET 50-100% OF NEEDS BY NEXT ASSESSMENT. WILL INCREASE GLUCERNA TO BID. M/E - WILL MONITOR INTAKE. F/U IN 3-5 DAYS.
--- NOTE | 2017-03-01 16:29 | NUR ---
Significant Event: A/O. VSS on RA. C/O low back pain. Tylenol given x2. full lift for transfers d/t pacer placement. AC/HS accuchecks. bladder scan this afternoon 300ml, catheter adjusted and drained 200ml immediately. Bottom open and excoriated, repo'd q2h today. Order that patient may leave the floor with family obtained. Follow up:
[2017-03-01 19:50] LABS: BILIRUBIN URINE NEGATIVE (NEGATIVE); BLOOD URINE 150 /UL (NEGATIVE); COLOR URINE YELLOW (YELLOW); GLUCOSE URINE 50 mg/dL (NEGATIVE); KETONE URINE NEGATIVE (NEGATIVE); LEUKOCYTES URINE 500 /UL (NEGATIVE); NITRITE URINE NEGATIVE (NEGATIVE); PROTEIN URINE 500 mg/dL (NEGATIVE); SPEC GRAVITY URINE 1.015 (1.003-1.035); TURBIDITY URINE 1+ (CLEAR); UROBILINOGEN URINE NORMAL (NORMAL)
[2017-03-01 20:01] LABS: WBC URINE 50-100 #/HPF (NEGATIVE)
[2017-03-01 20:02] LABS: BACTERIA URINE MODERATE (NEGATIVE); EPITHELIAL URINE 0-2 #/HPF (NEGATIVE); YEAST URINE MANY (NEGATIVE)
[2017-03-01 20:03] LABS: WBC CLUMPS URINE MODERATE (NEGATIVE)
--- NOTE | 2017-03-02 06:23 | NUR ---
Significant Event:A/Ox3. VSS. RA. Afebrile. Repositioned q3h at patient request. Aloe Lancaster to butt/scrotum with each turn. Tylenol given x1 for generalized discomfort. Zhang to DD with no problems draining. Sling to L)arm. PT working with patient on transfers. Heparin gtt at 1100 units/h with next ptthp at 0645. Follow up:Continue to monitor per POC.
[2017-03-02 06:53] LABS: BASOPHIL # 0.1 K/uL (0.0-0.2); BASOPHIL % 0.8 %; EOSINOPHIL # 0.4 K/uL (0.0-0.5); EOSINOPHIL % 5.3 %; HEMATOCRIT 30.6 % (37.0-53.0); HEMOGLOBIN 10.1 g/dL (11.0-16.0); IMMATURE GRANULOCYTE % 0.4 %; LYMPHOCYTE # 2.5 K/uL (0.8-4.0); LYMPHOCYTE % 32.4 %; MCH 29.4 pg (27.0-34.0); MCV 89.2 fl (83.0-98.0); MONOCYTE # 0.5 K/uL (0.0-1.0); MONOCYTE % 6.2 %; MPV 9.5 fl (9.4-12.4); NEUTROPHIL # (ANC) 4.3 K/uL (1.4-9.0); NEUTROPHIL % 54.9 %; NRBC % 0 /100WBC (0-0.00); PLATELET COUNT 255 K/uL (150-450); RBC 3.43 M/uL (3.50-5.50); RDW-CV 13.5 % (11.9-14.6); WBC 7.7 K/uL (4.0-11.0)
[2017-03-02 07:03] LABS: INR - (THERAPEUTIC) 1.02 (0.92-1.07); PROTIME 10.7 SECONDS (9.8-11.4)
[2017-03-02 07:13] LABS: ALBUMIN 2.3 gm/dL (3.5-5.0); ANION GAP 13.1 (10.0-19.0); CALCIUM 8.4 mg/dL (8.5-10.5); PHOSPHORUS 3.8 mg/dL (2.5-4.9); POTASSIUM 4.1 mMol/L (3.7-5.1)
--- NOTE | 2017-03-02 16:43 | NUR ---
1030 Social visit lizabeth Schuler and his daughter who was at bedside this morning. Let them know that we had put in for a rehab consult last night, but it didn't look like doctor had rounded at this point. I informed them that Dr. Gallagher was out on vacation, so Dr. Rodriguez would be coming into see them. They were fine with this. I talked with them about the possibility of having to go back to [facility] if for some reason [facility] wouldn't be able to accept, they were both fine with this plan. I let them know as soon as Dr. Rodriguez rounded and gave us a yes or a no to GIRP, then we would go from there. 1050 Asked if JULIANA Bowers had called to ask Dr. Rodriguez to come and see yet, she hadn't so I then called and talked with him directly. He states that Ganga wasn't on his census, but if I put him on there, then he would come and see him as soon as he could. I gave him clinical background of Ganga so he knew a little about him prior to seeing him. I phoned up the the front nursing station and asked that Ganga be put on Dr. Rodriguez's census and that was done by the resource staff. 1300 Call to Elissa to see if Dr. Rodriguez had rounded yet, she states he has not. Asked that if he hasn't rounded soon, to give him a call to remind him to come. 1500 Stopped up to Ganga's room, he was out of the room and Dr. Rodriguez had still not rounded. 1515 JULIANA Bowers called to Dr. Rodriguez to see if he was still coming to see today. He stated to Elissa that he had been very busy today but would be around as soon as he could to see Ganga. 1630 Call up to Elissa to see if Dr. Rodriguez had been around yet, she tells me he still hasn't come up yet. I let her know that if he wasn't around by 1700 to please call him again to remind him to come up. Elissa voiced understanding to this. If he does come and see and doesn't think that he is [facility] appropriate, then we will look into [facility] in [place] as the next option. CM to continue to follow and assist.
--- NOTE | 2017-03-02 17:08 | NUR ---
Significant Event: Alert and oriented X 3. Room air. SBP 130's and 140's. HR 70's. Heparin infusing at 1100 units/hr, Ptthp's have been therapeutic this shift. Fluid restriction of 1500 ml. Large bowel movement this shift. Left arm in sling d/t pacer placement. Dr Rodriguez consulted for rehab. Full lift. Compression stockings to be removed at bedtime/reapplied in the am. Peripheral IV to right forearm. Family took outside this afternoon. Pleasant and cooperative with cares. Follow up:
[2017-03-03 02:57] LABS: BASOPHIL # 0.1 K/uL (0.0-0.2); BASOPHIL % 0.7 %; EOSINOPHIL # 0.4 K/uL (0.0-0.5); EOSINOPHIL % 4.6 %; HEMATOCRIT 28.2 % (37.0-53.0); HEMOGLOBIN 9.5 g/dL (11.0-16.0); IMMATURE GRANULOCYTE % 0.5 %; LYMPHOCYTE # 2.7 K/uL (0.8-4.0); LYMPHOCYTE % 30.8 %; MCH 29.8 pg (27.0-34.0); MCHC 33.7 gm/dL (32.0-36.5); MCV 88.4 fl (83.0-98.0); MONOCYTE # 0.6 K/uL (0.0-1.0); MONOCYTE % 6.4 %; MPV 9.6 fl (9.4-12.4); NRBC % 0 /100WBC (0-0.00); PLATELET COUNT 253 K/uL (150-450); RBC 3.19 M/uL (3.50-5.50); RDW-CV 13.3 % (11.9-14.6); WBC 8.8 K/uL (4.0-11.0)
[2017-03-03 03:15] LABS: ALBUMIN 2.2 gm/dL (3.5-5.0); CALCIUM 8.1 mg/dL (8.5-10.5); CREATININE 2.1 mg/dL (0.6-1.3); PHOSPHORUS 3.7 mg/dL (2.5-4.9)
[2017-03-03 03:32] LABS: INR - (THERAPEUTIC) 1.03 (0.92-1.07); PROTIME 10.8 SECONDS (9.8-11.4)
--- NOTE | 2017-03-03 05:39 | NUR ---
Significant Event:A/Ox3. VSS. RA. Afebrile. Repositioned q2-3h per patient request. Replaced castillo catheter. Patient had family and friends in the room until almost midnight, rested well after they left. Heparin continues at 1100 units/h with next ptthp at 1525. Follow up:Continue to monitor per POC.
--- NOTE | 2017-03-03 11:32 | NUR ---
Received call from Vicky GUERRIER on GIR that Dr Rodriguez does not feel patient is ready for rehab d/t left arm limitations. I called and left a message for Zara at the [facility] to see if they can accept. WIll wait to hear back from Zara.
--- NOTE | 2017-03-03 14:16 | NUR ---
Received a call from Charis NUÑEZ stating patient would like to speak with me. met patient and family in patients room. Patients is upset that Dr Rodriguez does not feel patient is a rehab canidate. She states that "both the therapists that just left here say Jeffrey would really benefit from rehab". She stated "i don't understand how an orthopedic doctor can determine if someone is a good canidate for rehab." I did explain that Dr Rodriguez is very quallified to determine if someone is a rehab canidate. I also explained that part of the reasoning was he was very limitied as to what he could do with his left arm since haivng his pacer. She is very upset and tearful. I explained that I had a call into Zara at the [facility] and was waiting to her back from her. I would let them know as soon as I heard from Zara. I did encourage her to speak with Dr Ny about her frustrations and concerns. WIll continue to follow.
--- NOTE | 2017-03-03 16:24 | NUR ---
Significant Event: Alert and oriented x 3. Room air. Patient is parapeligic. Stict I & O. Open area above drain sites on left lateral side. Vaseline gauze and gauze with paper tape or blue tape to this area for 48 hours. After 48 hours apply non-adherent gauze with paper tape. Full lift to wheelchair. May sit up for 2 hours at a time. Does have permission to go outside with family. Breakdown on left hip and scrotum. Nystatin in room and aloe. Zhang intact draining clear yellow urine. Heparin infusing at 1100 units per hour. Ptthp has been therapeutic. Next Ptthp at 0330 03/04/17. Pleasant and cooperative with cares. Follow up:
[2017-03-04 03:48] LABS: BASOPHIL # 0.1 K/uL (0.0-0.2); BASOPHIL % 0.6 %; EOSINOPHIL # 0.4 K/uL (0.0-0.5); EOSINOPHIL % 4.4 %; HEMATOCRIT 27.4 % (37.0-53.0); HEMOGLOBIN 9.2 g/dL (11.0-16.0); IMMATURE GRANULOCYTE % 0.5 %; LYMPHOCYTE # 2.5 K/uL (0.8-4.0); MCH 29.9 pg (27.0-34.0); MCHC 33.6 gm/dL (32.0-36.5); MONOCYTE # 0.5 K/uL (0.0-1.0); MONOCYTE % 6.7 %; MPV 9.2 fl (9.4-12.4); NEUTROPHIL # (ANC) 4.4 K/uL (1.4-9.0); NEUTROPHIL % 55.8 %; NRBC % 0 /100WBC (0-0.00); PLATELET COUNT 227 K/uL (150-450); RBC 3.08 M/uL (3.50-5.50); RDW-CV 13.4 % (11.9-14.6); WBC 7.9 K/uL (4.0-11.0)
[2017-03-04 04:01] LABS: ALBUMIN 2.2 gm/dL (3.5-5.0); ANION GAP 11.3 (10.0-19.0); CALCIUM 8.2 mg/dL (8.5-10.5); CREATININE 2.2 mg/dL (0.6-1.3); PHOSPHORUS 3.7 mg/dL (2.5-4.9); POTASSIUM 4.3 mMol/L (3.7-5.1)
[2017-03-04 04:07] LABS: INR - (THERAPEUTIC) 1.03 (0.92-1.07); PROTIME 10.8 SECONDS (9.8-11.4)
--- NOTE | 2017-03-04 04:29 | NUR ---
Significant events: Pt A/Ox3. VSS. No complaints of pain. Repositioned frequently. Heparin gtt continues at 1000 units/hr. Zhang in place. ACHS accucheck. Slept most of shift. Full lift.
--- NOTE | 2017-03-04 11:33 | NUR ---
A - NUTRITION F/U. 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 PARAPLEGIC W/ BREAKDOWN TO L) HIP, SCROTUM. PT W/ 1-2+ BLE EDEMA. INTAKE VARIES FROM 0-100%, AVERAGE 55%. GLUCERNA BID. D - AT RISK W/ INADEQUATE ORAL INTAKE R/T DECREASED APPETITE AEB INTAKE RECORD. I - GOAL: 75% AVERAGE INTAKE BY DISMISSAL. M/E - WILL CONT TO MONTIOR ORAL INTAKE AND F/U IN 3-5 DAYS.
--- NOTE | 2017-03-04 12:31 | NUR ---
0835 Call from Beatrice Lombardi in therapy dept, stating that want's to talk with me when I get a chance. I let Beatrice know that it would be a while before I could get up and visit with Ganga and and to let them know I would try to get up there within the hour, but if not, then soon after. 1130 Call from Zara at [facility], she had a few questions for me and I was able to answer those. She was going to check with her billing staff to make sure that pre-auth had been done and then update me after that. She did state that Dr. Hunt had accepted Ganga to come whenever he was medically cleared to do so. 1200 Stopped up to Ganga's room but he had visitors in the room and was not in the room to talk with. Will stop back by later and visit with Ganga and at that time.
--- NOTE | 2017-03-04 19:00 | NUR ---
Significant Event: ALERT & ORIENTED. VSS, AFEBRILE, ROOM AIR. PARAPLEGIC. SLING TO L) ARM. FIGUEROA. HEPARIN GTT NEXT LAB DRAW AT 2200, RESTART COUMADIN TOMORROW. ACCUCHEK ACHS, NO SLIDING SCALE GIVEN. PLAN TO DC TO [facility] TOMORROW TO TRANSPORT.
[2017-03-05 04:47] LABS: ALBUMIN 2.3 gm/dL (3.5-5.0); ANION GAP 10.2 (10.0-19.0); CALCIUM 8.2 mg/dL (8.5-10.5); CREATININE 2.3 mg/dL (0.6-1.3); PHOSPHORUS 3.5 mg/dL (2.5-4.9); POTASSIUM 4.2 mMol/L (3.7-5.1)
--- NOTE | 2017-03-05 04:53 | NUR ---
Significant Event:VSS.RA.TURN/REPOSITION Q2H.FIGUEROA INTACT. TO BE REMOVED @ 0600. STOP HEPARIN GTT @ 0500. COUMADIN GIVEN LAST NIGHT. EAGER TO GO TO SWING BED. LUE PRECAUTIONS DEMONSTRATED, INCISION CDI. Follow up:LABS, POSSIBLE DISMISSAL 03/05
--- NOTE | 2017-03-05 10:22 | NUR ---
Patient is alert & oriented x3. HR is paced with underlying afib/aflutter. Lungs are clear/diminished, on room air. Patient straight caths self Q4H, cathed self at 1025. Showered today, put alleyvn dressing on L) lateral chest, where open blister area is, to change Q Wednesday and Wednesday. Scrotum red, with a few skin tears, applying nystatin to scrotum and periarea. Bottom is sheared, applying aleo. SBP 140 this AM. Bowel sounds active, last BM 03/04/17. BG at 0700 was 124. Working with PT/OT. To transfer to [facility] today.
--- NOTE | 2017-03-05 14:52 | NUR ---
Call to Zara at [facility], she states that they can still accept Ganga today if doctors feel like he is medically stable to transfer. Let her know that I would talk with nursing and DR. Ny and then get back to her. Zara was fine with this plan. Call to Dr. Ny, she tells me that she is planning on coming to see Ganga in a little bit and will call in MD to MD report to Dr. Hunt before he leaves. Update RN Rosemary that RN to RN number was on the chart for her to call in report before he leaves. Visited with in the hallway, she was ready to get him back to the [facility] and is still in agreement with transfering him with via personal auto. I called Zara back to let her know about all of the above, let her know we planned on him leaving around [id number]. Zara was fine with this. Orders were done by Dr. Ny and faxed over to [facility] prior to him leaving the building. No other questions, needs or concerns. CM to continue to follow and assist.
[2017-05-21] MEDS ORDERED: COUMADIN ** IA3 MG PO (13:35)
[2017-05-21] MEDS ORDERED: PRINIVIL (ZESTRI5 MG PO (13:37)
[2017-05-21] MEDS ORDERED: AMIODARONE HCL100 MG (13:37)
[2017-05-21] MEDS ORDERED: TOPROL XL 5050 MG PO (13:38)
== END 2017-03-05 12:51 | DRG 242 ==
LOC: GMSU 11:00 → GPCU 13:10
PROVIDERS: Hospitalist; Internal Medicine; Internal Medicine Nephrology; Nurse Practitioner; Thoracic Surgery (Cardiothoracic Vascular Surgery); ADMIT Internal Medicine
DX: I13.0 Hypertensive heart and chronic kidney disease with heart failure and stage 1 through stage 4 chronic kidney disease, or unspecified chronic kidney disease (principal); N17.0 Acute kidney failure with tubular necrosis; J96.01 Acute respiratory failure with hypoxia; I50.33 Acute on chronic diastolic (congestive) heart failure; G82.20 Paraplegia, unspecified; I69.354 Hemiplegia and hemiparesis following cerebral infarction affecting left non-dominant side; I49.5 Sick sinus syndrome; E11.22 Type 2 diabetes mellitus with diabetic chronic kidney disease; N26.9 Renal sclerosis, unspecified; I48.0 Paroxysmal atrial fibrillation; N18.3 Chronic kidney disease, stage 3 (moderate); I70.90 Unspecified atherosclerosis; R91.1 Solitary pulmonary nodule; I34.0 Nonrheumatic mitral (valve) insufficiency; R00.1 Bradycardia, unspecified; I25.10 Atherosclerotic heart disease of native coronary artery without angina pectoris; Z79.01 Long term (current) use of anticoagulants; I69.312 Visuospatial deficit and spatial neglect following cerebral infarction; Z99.3 Dependence on wheelchair; Z98.1 Arthrodesis status
CPT/HCPCS: C1785; C1898; J0360; J0461; J0690; J1644; J1650; J1940; J2250; J2405; J7030; J7050; J7060